=== PATIENT | male | born 1940 | race Caucasian/White ===

== ENCOUNTER 2021-06-28 08:09 | Emergency (ER) | payer OTHER ==
[~2021-06-28] VITALS: Ht 182.9 cm; Wt 99.8 kg
[~2021-06-28 08:09] MED LIST: HYDR-1421
[2021-06-28 09:00] LABS: Basophils # (auto) 0 10 ^3/uL (0-0.2); Basophils % (auto) 0.4 % (0.0-2.0); Eosinophils # (auto) 0 10 ^3/uL (0-0.8); Hematocrit 36.3 % (41.0-53.0); Hemoglobin 12.2 g/dL (13.5-17.5); Lymphocytes # (auto) 0.5 10 ^3/uL (0.4-5.4); Lymphocytes % (auto) 10.2 % (10.0-50.0); Mean Corpuscular Hemoglobin 31.5 pg (28.0-32.0); Mean Corpuscular Hgb Conc. 33.6 g/dL (32.0-36.0); Mean Corpuscular Volume 93.7 fL (80.0-100.0); Monocytes # (auto) 0.6 10 ^3/uL (0-1.3); Monocytes % (auto) 12.5 % (0.0-12.0); Neutrophils # (auto) 3.9 10 ^3/uL (1.6-8.6); Neutrophils % (auto) 76.9 % (37.0-80.0); Nucleated Red Blood Cells % 0.1 %; Red Blood Cells 3.87 10^6/uL (4.5-5.90); Red Cell Distribution Width 13.6 % (11.8-14.3); White Blood Cell 5.1 10^3/uL (4.4-10.8)
[2021-06-28 09:10] LABS: Albumin 3.5 g/dL (3.4-5.0); Anion Gap 12 (5-15); Blood Urea Nitrogen 15 mg/dL (7-18); Calcium 8.6 mg/dL (8.5-10.1); Carbon Dioxide 26 mmol/L (21-32); Chloride 96 mmol/L (98-107); Glucose 112 mg/dL (74-106); Magnesium 2.3 mg/dL (1.6-2.6); Potassium 4.1 mmol/L (3.5-5.1); Sodium 134 mmol/L (136-145)
[2021-06-28 09:14] LABS: Alanine Aminotransferase 23 U/L (16-61); Alkaline Phosphatase 48 U/L (45-117); Aspartate Aminotransferase 17 U/L (15-37); BUN/Creatinine Ratio 19.7; Bilirubin, Total 0.4 mg/dL (0.2-1.0); GFR African American 126 mL/min; GFR Non-African American 104 mL/min; Total Protein 7.1 g/dL (6.4-8.2)
[2021-06-28] MEDS ORDERED: SODIUM CHLORIDE 0.9% 1,000 ML IV ONE ×2 (09:15→16:15)
[2021-06-28 10:29] LABS: INR 1.07 (0.9-1.15); Partial Thromboplastin Time 28.8 sec (23.6-33.0)
[2021-06-28 15:41] LABS: Urine Bacteria NONE SEEN /hpf (None Seen); Urine Blood TRACE /uL (Negative); Urine Hyaline Cast FEW /lpf (0 - 2); Urine Mucus FEW (None Seen); Urine Specific Gravity 1.018 (1.001-1.035); Urine WBC 3 /hpf (0 - 3)
[2021-06-28 20:30] VITALS: BP 143/74
== END 2021-06-28 21:25 | disposition short-term general hospital (02) ==
LOC: ER 08:09 → EDBD 08:09 → ER 21:25
DX: U07.1 COVID-19 (principal); R53.1 Weakness; G20 Parkinson's disease; F02.80 Dementia in other diseases classified elsewhere, unspecified severity, without behavioral disturbance, psychotic disturbance, mood disturbance, and anxiety; I48.91 Unspecified atrial fibrillation; Z79.899 Other long term (current) drug therapy; Z88.0 Allergy status to penicillin
CPT/HCPCS: 36415; 70450; 71045; 80053; 81001; 83735; 84484; 85025; 85610; 85730; 87426; 93005; 96360; 96361; 99285; J7030

== ENCOUNTER 2021-07-08 18:03 | Inpatient (IN) | payer OTHER ==
[~2021-07-08] VITALS: Ht 188 cm; Wt 68.8 kg
[2021-07-08] MEDS ORDERED: ACETAMINOPHEN 650 MG RECT SUPP PR ONE ×2 (18:43→18:45)
[2021-07-08 19:02] LABS: Basophils # (auto) 0 10 ^3/uL (0-0.2); Basophils % (auto) 0.2 % (0.0-2.0); Eosinophils # (auto) 0 10 ^3/uL (0-0.8); Hemoglobin 14.3 g/dL (13.5-17.5); Lymphocytes # (auto) 0.3 10 ^3/uL (0.4-5.4); Lymphocytes % (auto) 2.3 % (10.0-50.0); Mean Corpuscular Hemoglobin 30.5 pg (28.0-32.0); Mean Corpuscular Hgb Conc. 34.1 g/dL (32.0-36.0); Mean Corpuscular Volume 89.3 fL (80.0-100.0); Monocytes % (auto) 7.6 % (0.0-12.0); Neutrophils # (auto) 11.7 10 ^3/uL (1.6-8.6); Neutrophils % (auto) 89.9 % (37.0-80.0); Nucleated Red Blood Cells % 0.1 %; Red Cell Distribution Width 13.5 % (11.8-14.3)
[2021-07-08 19:18] LABS: Albumin 3.1 g/dL (3.4-5.0); Anion Gap 8 (5-15); Blood Urea Nitrogen 50 mg/dL (7-18); Calcium 9.3 mg/dL (8.5-10.1); Carbon Dioxide 25 mmol/L (21-32); Chloride 103 mmol/L (98-107); Glucose 182 mg/dL (74-106); Potassium 4.6 mmol/L (3.5-5.1); Sodium 136 mmol/L (136-145)
[2021-07-08 19:19] LABS: Lactic Acid w/Reflex 2.5 mmol/L (0.4-2.0)
[2021-07-08 19:22] LABS: INR 1.08 (0.9-1.15)
[2021-07-08 19:33] LABS: Alanine Aminotransferase 110 U/L (16-61); Alkaline Phosphatase 65 U/L (45-117); Aspartate Aminotransferase 48 U/L (15-37); BUN/Creatinine Ratio 27.6; Bilirubin, Total 0.8 mg/dL (0.2-1.0); GFR African American 46 mL/min; GFR Non-African American 38 mL/min
[2021-07-08 19:46] LABS: Urine Amorphous Crystal FEW /hpf (None Seen); Urine Bacteria MOD /hpf (None Seen); Urine Mucus MODERATE (None Seen); Urine WBC 31 /hpf (0 - 3); Urine WBC Clumps PRESENT /hpf (None Seen)
[2021-07-08 19:54] LABS: Urine Specific Gravity 1.015 (1.001-1.035)
[2021-07-08 19:55] LABS: Urine Blood 2+ /uL (Negative)
[2021-07-08] MEDS ORDERED: cefTRIAXone 1GM/50ML D5W 50 ML IV ONE (20:30)
[2021-07-08] MEDS ORDERED: DexAMETHasone SOD PHOS 10MG/1ML VIAL INJ IV ONE (20:30)
[2021-07-08] MEDS ORDERED: AZITHROMYCIN 500MG/ 250ML 250 ML IV ONE (20:30)
[2021-07-08] MEDS ORDERED: SODIUM CHLORIDE 0.9% 1,000 ML IV ONE (20:30)
[2021-07-08] MEDS ORDERED: CEFEPIME 1 GM in SODIUM CHL 0.9% 50 ML IV ONE (21:15)
[2021-07-08] MEDS ORDERED: ACETAMINOPHEN 650 MG RECT SUPP PR PRN (21:15)
[2021-07-08] MEDS ORDERED: ONDANSETRON HCL 4 MG/2 ML VIAL IV PRN (22:15)
[2021-07-08] MEDS ORDERED: ACETAMINOPHEN 500 MG TAB PO PRN (22:15)
[2021-07-08] MEDS ORDERED: MORPHINE SULFATE INJECTION 2 MG/ML SYRG IV PRN (22:15)
[2021-07-08] MEDS ORDERED: ALBUTEROL SULF HFA 90MCG INH 200DOSE IN PRN (22:15)
[2021-07-08] MEDS ORDERED: NITROGLYCERIN 0.4 MG SL TAB SL PRN (22:15)
[2021-07-08 23:28] LABS: Magnesium 2.5 mg/dL (1.6-2.6)
[2021-07-08 23:49] LABS: CRP High Sensitivity 11.3 mg/dL (< 0.3)
[2021-07-09 05:41] LABS: Basophils # (auto) 0 10 ^3/uL (0-0.2); Basophils % (auto) 0.1 % (0.0-2.0); Eosinophils # (auto) 0 10 ^3/uL (0-0.8); Hematocrit 38.9 % (41.0-53.0); Hemoglobin 13.3 g/dL (13.5-17.5); Lymphocytes # (auto) 0.5 10 ^3/uL (0.4-5.4); Lymphocytes % (auto) 4.6 % (10.0-50.0); Mean Corpuscular Hemoglobin 30.8 pg (28.0-32.0); Mean Corpuscular Hgb Conc. 34.3 g/dL (32.0-36.0); Mean Corpuscular Volume 89.8 fL (80.0-100.0); Monocytes # (auto) 0.6 10 ^3/uL (0-1.3); Monocytes % (auto) 5.4 % (0.0-12.0); Neutrophils # (auto) 10.4 10 ^3/uL (1.6-8.6); Neutrophils % (auto) 89.9 % (37.0-80.0); Red Blood Cells 4.33 10^6/uL (4.5-5.90); Red Cell Distribution Width 13.4 % (11.8-14.3); White Blood Cell 11.6 10^3/uL (4.4-10.8)
[2021-07-09 06:10] LABS: Albumin 2.7 g/dL (3.4-5.0); Calcium 8.4 mg/dL (8.5-10.1); Potassium 4.2 mmol/L (3.5-5.1)
[2021-07-09 06:13] LABS: BUN/Creatinine Ratio 41.5; Bilirubin, Total 0.7 mg/dL (0.2-1.0)
[2021-07-09] MEDS: levoFLOXacin 250MG 50 ML IV SCH (08:51)
[2021-07-09] MEDS: DexAMETHasone SOD PHOS 10MG/1ML VIAL INJ IV SCH (08:51)
[2021-07-09] MEDS: ZINC SULFATE 220mg CAP or TAB PO SCH (08:51)
[2021-07-09] MEDS: ASCORBIC ACID 1,000 MG TAB PO SCH (08:52)
[2021-07-09] MEDS: MEMANTINE HCL 5 MG TAB PO SCH (08:52)
[2021-07-09] MEDS: PANTOPRAZOLE 40 MG TAB PO SCH (08:52)
[2021-07-09] MEDS: CHOLECALCIFEROL (VITD3) 2,000 UNIT CAP/TAB PO SCH (08:52)
[2021-07-09] MEDS ORDERED: ENOXAPARIN SOD 40 MG/0.4 ML SYRINGE SC SCH (10:00)
[2021-07-09 12:51] VITALS: BP 113/94
[2021-07-09] MEDS ORDERED: REMDESIVIR PER PHARMACY 0 ML IV SCH (13:30)
[2021-07-09] MEDS ORDERED: REMDESIVIR 200 MG in NS 210ml LOADING DOSE ADULT IV ONE (14:30)
[2021-07-09] MEDS ORDERED: IOHEXOL 350 MG/ML 100ML IJ ONE (17:00)
[2021-07-09] MEDS ORDERED: LABETALOL HCL 5 MG/ML 4ML SYRINGE IV PRN ×2 (18:00)
[2021-07-09] MEDS ORDERED: ENOXAPARIN SOD 80 MG/0.8ML SYRINGE SC ONE (19:15)
[2021-07-09] MEDS ORDERED: ENOXAPARIN SOD 100 MG/1 ML SYRINGE SC SCH (19:30)
[2021-07-09 20:29] VITALS: BP 140/99
[2021-07-09 22:00] VITALS: BP 143/94
[2021-07-09] MEDS ORDERED: ALBUTEROL SULF 2.5 MG/0.5ML(0.5%) NEB SOLN NEB SCH (22:00)
[2021-07-09] MEDS ORDERED: AZITHROMYCIN 500MG/ 250ML 250 ML IV SCH (22:00)
[2021-07-09] MEDS ORDERED: ACETYLCYSTEINE 20%(200MG/ML) SOL 4ML NEB SCH (22:00)
[2021-07-09] MEDS ORDERED: AZIT200S47 (23:25)
[2021-07-09] MEDS ORDERED: TROS20TA3 PO (23:25)
[2021-07-09] MEDS ORDERED: MEMA5TAB2 PO (23:25)
[2021-07-09] MEDS ORDERED: RIS1T PO (23:25)
[2021-07-09] MEDS: ALBUTEROL SULF 2.5 MG/0.5ML(0.5%) NEB SOLN NEB SCH (23:26)
[2021-07-09] MEDS: ACETYLCYSTEINE 10 %(100MG/ML) SOL 4ML NEB SCH (23:26)
[2021-07-09] MEDS: IPRATROPIUM BROM 0.5 MG/2.5ML INH SOL NEB SCH (23:26)
[2021-07-10] MEDS: ACETYLCYSTEINE 10 %(100MG/ML) SOL 4ML NEB SCH ×5 (02:34→23:00)
[2021-07-10] MEDS: ALBUTEROL SULF 2.5 MG/0.5ML(0.5%) NEB SOLN NEB SCH ×5 (02:34→23:00)
[2021-07-10] MEDS: IPRATROPIUM BROM 0.5 MG/2.5ML INH SOL NEB SCH ×4 (02:34→23:00)
[2021-07-10 05:17] VITALS: BP 143/83
[2021-07-10 07:00] VITALS: BP 136/91
[2021-07-10] MEDS ORDERED: HEPARIN SODIUM (PORCINE) 5000 UNITS/ML 1ML VIAL IV ONE (08:45)
[2021-07-10 09:00] VITALS: BP 136/91
[2021-07-10] MEDS: DexAMETHasone SOD PHOS 10MG/1ML VIAL INJ IV SCH (09:46)
[2021-07-10] MEDS: levoFLOXacin 250MG 50 ML IV SCH (09:47)
[2021-07-10] MEDS: PANTOPRAZOLE 40 MG TAB PO SCH (10:00)
[2021-07-10] MEDS: ZINC SULFATE 220mg CAP or TAB PO SCH (10:00)
[2021-07-10] MEDS: ASCORBIC ACID 1,000 MG TAB PO SCH (10:00)
[2021-07-10] MEDS: CHOLECALCIFEROL (VITD3) 2,000 UNIT CAP/TAB PO SCH (10:00)
[2021-07-10] MEDS: MEMANTINE HCL 5 MG TAB PO SCH (10:00)
[2021-07-10 11:11] LABS: INR 1.11 (0.9-1.15); Partial Thromboplastin Time 27.5 sec (23.6-33.0)
[2021-07-10 11:27] LABS: Basophils # (auto) 0 10 ^3/uL (0-0.2); Basophils % (auto) 0.1 % (0.0-2.0); Eosinophils # (auto) 0 10 ^3/uL (0-0.8); Hematocrit 41.2 % (41.0-53.0); Hemoglobin 13.8 g/dL (13.5-17.5); Lymphocytes # (auto) 0.4 10 ^3/uL (0.4-5.4); Lymphocytes % (auto) 2.8 % (10.0-50.0); Mean Corpuscular Hemoglobin 30.2 pg (28.0-32.0); Mean Corpuscular Hgb Conc. 33.5 g/dL (32.0-36.0); Mean Corpuscular Volume 90.3 fL (80.0-100.0); Monocytes # (auto) 0.7 10 ^3/uL (0-1.3); Monocytes % (auto) 4.9 % (0.0-12.0); Neutrophils # (auto) 12.9 10 ^3/uL (1.6-8.6); Neutrophils % (auto) 92.2 % (37.0-80.0); Red Blood Cells 4.56 10^6/uL (4.5-5.90); Red Cell Distribution Width 13.4 % (11.8-14.3)
[2021-07-10] MEDS: HEPARIN DRIP/D5W 100UNITS/ML 250 ML IV SCH ×2 (11:57→18:55)
[2021-07-10 13:00] VITALS: BP 126/69
[2021-07-10] MEDS ORDERED: REMDESIVIR 100mg 100 MG in SODIUM CHL 0.9% 230 ML IV SCH (15:00)
[2021-07-10 17:00] VITALS: BP 119/69
[2021-07-10 18:43] LABS: INR 1.16 (0.9-1.15)
[2021-07-10 18:46] LABS: Partial Thromboplastin Time 82.8 sec (23.6-33.0)
[2021-07-10 21:35] VITALS: BP 135/94
[2021-07-11 01:43] LABS: INR 1.16 (0.9-1.15); Partial Thromboplastin Time 68.1 sec (23.6-33.0)
[2021-07-11] MEDS: ACETYLCYSTEINE 10 %(100MG/ML) SOL 4ML NEB SCH ×6 (02:28→22:31)
[2021-07-11] MEDS: ALBUTEROL SULF 2.5 MG/0.5ML(0.5%) NEB SOLN NEB SCH ×6 (02:28→22:31)
[2021-07-11 05:00] VITALS: BP 108/80
[2021-07-11 05:45] LABS: Basophils # (auto) 0 10 ^3/uL (0-0.2); Basophils % (auto) 0.2 % (0.0-2.0); Eosinophils # (auto) 0 10 ^3/uL (0-0.8); Hematocrit 38.8 % (41.0-53.0); Hemoglobin 13.5 g/dL (13.5-17.5); Lymphocytes # (auto) 0.5 10 ^3/uL (0.4-5.4); Lymphocytes % (auto) 5.4 % (10.0-50.0); Mean Corpuscular Hemoglobin 30.8 pg (28.0-32.0); Mean Corpuscular Hgb Conc. 34.9 g/dL (32.0-36.0); Mean Corpuscular Volume 88.3 fL (80.0-100.0); Monocytes # (auto) 0.8 10 ^3/uL (0-1.3); Monocytes % (auto) 7.8 % (0.0-12.0); Neutrophils # (auto) 8.6 10 ^3/uL (1.6-8.6); Neutrophils % (auto) 86.6 % (37.0-80.0); Nucleated Red Blood Cells % 0.1 %; Red Blood Cells 4.39 10^6/uL (4.5-5.90); Red Cell Distribution Width 13.3 % (11.8-14.3)
[2021-07-11] MEDS: HEPARIN DRIP/D5W 100UNITS/ML 250 ML IV SCH ×3 (06:14→14:02)
[2021-07-11 06:26] LABS: Potassium 3.8 mmol/L (3.5-5.1)
[2021-07-11 06:36] LABS: Calcium 8.4 mg/dL (8.5-10.1)
[2021-07-11] MEDS: IPRATROPIUM BROM 0.5 MG/2.5ML INH SOL NEB SCH ×5 (07:16→22:31)
[2021-07-11] MEDS: ZINC SULFATE 220mg CAP or TAB PO SCH (08:22)
[2021-07-11] MEDS: PANTOPRAZOLE 40 MG TAB PO SCH (08:23)
[2021-07-11] MEDS: CHOLECALCIFEROL (VITD3) 2,000 UNIT CAP/TAB PO SCH (08:23)
[2021-07-11] MEDS: MEMANTINE HCL 5 MG TAB PO SCH (08:23)
[2021-07-11] MEDS: ASCORBIC ACID 1,000 MG TAB PO SCH (08:23)
[2021-07-11 08:27] VITALS: BP 113/76
[2021-07-11] MEDS: DexAMETHasone SOD PHOS 10MG/1ML VIAL INJ IV SCH (08:43)
[2021-07-11] MEDS: levoFLOXacin 250MG 50 ML IV SCH (08:43)
[2021-07-11] MEDS ORDERED: ACETAMINOPHEN 650 MG RECT SUPP PR PRN (08:45)
[2021-07-11] MEDS ORDERED: PANTOPRAZOLE 40 MG/10 ML VIAL INJ IV SCH (10:00)
[2021-07-11] MEDS: SOD CHL 0.9%/ KCL 20MEQ 1,000 ML IV SCH (10:27)
[2021-07-11 12:30] VITALS: BP 137/72
[2021-07-11 14:22] LABS: INR 1.14 (0.9-1.15); Partial Thromboplastin Time 60.2 sec (23.6-33.0)
[2021-07-11 17:00] VITALS: BP 122/77
[2021-07-11 22:00] VITALS: BP 139/83
[2021-07-12] MEDS: ALBUTEROL SULF 2.5 MG/0.5ML(0.5%) NEB SOLN NEB SCH ×6 (02:03→22:01)
[2021-07-12] MEDS: ACETYLCYSTEINE 10 %(100MG/ML) SOL 4ML NEB SCH ×6 (02:03→22:01)
[2021-07-12 05:00] VITALS: BP 119/70
[2021-07-12 05:02] LABS: Basophils # (auto) 0 10 ^3/uL (0-0.2); Basophils % (auto) 0.5 % (0.0-2.0); Eosinophils # (auto) 0 10 ^3/uL (0-0.8); Eosinophils % (auto) 0.4 % (0.0-7.0); Hematocrit 37.8 % (41.0-53.0); Lymphocytes # (auto) 0.7 10 ^3/uL (0.4-5.4); Lymphocytes % (auto) 9.1 % (10.0-50.0); Mean Corpuscular Hemoglobin 31.1 pg (28.0-32.0); Mean Corpuscular Hgb Conc. 34.3 g/dL (32.0-36.0); Mean Corpuscular Volume 90.5 fL (80.0-100.0); Monocytes # (auto) 0.6 10 ^3/uL (0-1.3); Monocytes % (auto) 7.8 % (0.0-12.0); Neutrophils # (auto) 6.5 10 ^3/uL (1.6-8.6); Neutrophils % (auto) 82.2 % (37.0-80.0); Nucleated Red Blood Cells % 0.1 %; Red Blood Cells 4.18 10^6/uL (4.5-5.90); Red Cell Distribution Width 13.2 % (11.8-14.3); White Blood Cell 7.9 10^3/uL (4.4-10.8)
[2021-07-12] MEDS: HEPARIN DRIP/D5W 100UNITS/ML 250 ML IV SCH (05:05)
[2021-07-12 05:22] LABS: Potassium 4.4 mmol/L (3.5-5.1)
[2021-07-12 05:40] LABS: Albumin 2.3 g/dL (3.4-5.0); BUN/Creatinine Ratio 49.2; Bilirubin, Total 0.6 mg/dL (0.2-1.0); CRP High Sensitivity 11.8 mg/dL (< 0.3); Calcium 8.4 mg/dL (8.5-10.1); Total Protein 6.6 g/dL (6.4-8.2)
[2021-07-12 05:44] LABS: INR 1.09 (0.9-1.15)
[2021-07-12] MEDS: IPRATROPIUM BROM 0.5 MG/2.5ML INH SOL NEB SCH ×5 (06:17→22:01)
[2021-07-12] MEDS: SOD CHL 0.9%/ KCL 20MEQ 1,000 ML IV SCH ×2 (06:54→23:27)
[2021-07-12 09:00] VITALS: BP 128/70
[2021-07-12] MEDS ORDERED: risperiDONE 1 MG TAB PO SCH (10:00)
[2021-07-12] MEDS: DexAMETHasone SOD PHOS 10MG/1ML VIAL INJ IV SCH (10:06)
[2021-07-12] MEDS: levoFLOXacin 250MG 50 ML IV SCH (10:06)
[2021-07-12] MEDS: MEMANTINE HCL 5 MG TAB PO SCH (10:06)
[2021-07-12] MEDS: risperiDONE 1 MG TAB PO SCH (10:07)
[2021-07-12 13:00] VITALS: BP 127/67
[2021-07-12 13:51] VITALS: BP 124/68
[2021-07-12 17:00] VITALS: BP 121/71
[2021-07-12] MEDS ORDERED: LORazepam 2MG/ML-1ML VIAL IV ONE (18:15)
[2021-07-12] MEDS: ENOXAPARIN SOD 100 MG/1 ML SYRINGE SC SCH (21:14)
[2021-07-12 22:00] VITALS: BP 122/71
[2021-07-13] MEDS: ALBUTEROL SULF 2.5 MG/0.5ML(0.5%) NEB SOLN NEB SCH ×4 (02:04→14:58)
[2021-07-13] MEDS: IPRATROPIUM BROM 0.5 MG/2.5ML INH SOL NEB SCH ×3 (02:04→14:58)
[2021-07-13] MEDS: ACETYLCYSTEINE 10 %(100MG/ML) SOL 4ML NEB SCH ×4 (02:04→14:58)
[2021-07-13 05:00] VITALS: BP 128/67
[2021-07-13 06:02] LABS: Calcium 7.7 mg/dL (8.5-10.1)
[2021-07-13 06:04] LABS: BUN/Creatinine Ratio 44.2; INR 1.07 (0.9-1.15); Partial Thromboplastin Time 28.5 sec (23.6-33.0)
[2021-07-13 06:15] LABS: Basophils # (auto) 0 10 ^3/uL (0-0.2); Basophils % (auto) 0.1 % (0.0-2.0); Eosinophils # (auto) 0 10 ^3/uL (0-0.8); Hematocrit 34.4 % (41.0-53.0); Hemoglobin 11.6 g/dL (13.5-17.5); Lymphocytes # (auto) 0.6 10 ^3/uL (0.4-5.4); Lymphocytes % (auto) 9.5 % (10.0-50.0); Mean Corpuscular Hemoglobin 30.1 pg (28.0-32.0); Mean Corpuscular Hgb Conc. 33.6 g/dL (32.0-36.0); Mean Corpuscular Volume 89.7 fL (80.0-100.0); Monocytes # (auto) 0.5 10 ^3/uL (0-1.3); Monocytes % (auto) 7.9 % (0.0-12.0); Neutrophils # (auto) 5.1 10 ^3/uL (1.6-8.6); Neutrophils % (auto) 82.5 % (37.0-80.0); Red Blood Cells 3.84 10^6/uL (4.5-5.90); Red Cell Distribution Width 13.3 % (11.8-14.3); White Blood Cell 6.2 10^3/uL (4.4-10.8)
[2021-07-13 09:00] VITALS: BP 131/72
[2021-07-13] MEDS: levoFLOXacin 250MG 50 ML IV SCH (10:24)
[2021-07-13] MEDS: MEMANTINE HCL 5 MG TAB PO SCH (10:24)
[2021-07-13] MEDS: DexAMETHasone SOD PHOS 10MG/1ML VIAL INJ IV SCH (10:24)
[2021-07-13] MEDS: risperiDONE 1 MG TAB PO SCH (10:24)
[2021-07-13] MEDS: ENOXAPARIN SOD 100 MG/1 ML SYRINGE SC SCH ×2 (10:25→21:23)
[2021-07-13 13:00] VITALS: BP 121/78
[2021-07-13] MEDS: LORazepam 2MG/ML-1ML VIAL IV PRN (13:00)
[2021-07-13 17:00] VITALS: BP 130/69
[2021-07-13] MEDS ORDERED: ALBUTEROL SULF 2.5 MG/0.5ML(0.5%) NEB SOLN NEB PRN (19:15)
[2021-07-13] MEDS ORDERED: IPRATROPIUM BROM 0.5 MG/2.5ML INH SOL NEB PRN (19:15)
[2021-07-13] MEDS: SOD CHL 0.9%/ KCL 20MEQ 1,000 ML IV SCH (19:54)
[2021-07-13 22:00] VITALS: BP 123/72
[2021-07-14 05:00] VITALS: BP 127/73
[2021-07-14 05:45] LABS: Basophils # (auto) 0 10 ^3/uL (0-0.2); Basophils % (auto) 0.1 % (0.0-2.0); Eosinophils # (auto) 0 10 ^3/uL (0-0.8); Hematocrit 33.8 % (41.0-53.0); Lymphocytes # (auto) 0.8 10 ^3/uL (0.4-5.4); Lymphocytes % (auto) 11.9 % (10.0-50.0); Mean Corpuscular Hemoglobin 31.4 pg (28.0-32.0); Mean Corpuscular Hgb Conc. 35.5 g/dL (32.0-36.0); Mean Corpuscular Volume 88.5 fL (80.0-100.0); Monocytes # (auto) 0.5 10 ^3/uL (0-1.3); Monocytes % (auto) 7.4 % (0.0-12.0); Neutrophils # (auto) 5.3 10 ^3/uL (1.6-8.6); Neutrophils % (auto) 80.6 % (37.0-80.0); Nucleated Red Blood Cells % 0.1 %; Red Blood Cells 3.82 10^6/uL (4.5-5.90); Red Cell Distribution Width 12.9 % (11.8-14.3); White Blood Cell 6.5 10^3/uL (4.4-10.8)
[2021-07-14 06:07] LABS: Calcium 7.9 mg/dL (8.5-10.1)
[2021-07-14 06:10] LABS: BUN/Creatinine Ratio 35.6
[2021-07-14 08:48] VITALS: BP 137/70
[2021-07-14] MEDS: MEMANTINE HCL 5 MG TAB PO SCH (10:28)
[2021-07-14] MEDS: ENOXAPARIN SOD 100 MG/1 ML SYRINGE SC SCH (10:28)
[2021-07-14] MEDS: DexAMETHasone SOD PHOS 10MG/1ML VIAL INJ IV SCH (10:28)
[2021-07-14] MEDS: levoFLOXacin 250MG 50 ML IV SCH (10:28)
[2021-07-14] MEDS: risperiDONE 1 MG TAB PO SCH (10:28)
[2021-07-14] MEDS: LORazepam 2MG/ML-1ML VIAL IV PRN (11:25)
[2021-07-14 12:39] VITALS: BP 128/65
[2021-07-14 17:00] VITALS: BP 141/95
[2021-07-14] MEDS: Ensure Enlive Strawberry 8oz Bottle PO SCH (18:11)
[2021-07-14 22:00] VITALS: BP 143/94
[2021-07-14] MEDS: APIXABAN 5 MG TAB PO SCH (22:51)
[2021-07-15 05:00] VITALS: BP 153/99
[2021-07-15 09:18] VITALS: BP 131/77
[2021-07-15] MEDS ORDERED: levoFLOXacin 250MG 50 ML IV SCH (10:00)
[2021-07-15] MEDS: DexAMETHasone SOD PHOS 10MG/1ML VIAL INJ IV SCH (10:24)
[2021-07-15] MEDS: Ensure Enlive Strawberry 8oz Bottle PO SCH ×3 (10:25→18:00)
[2021-07-15] MEDS: MEMANTINE HCL 5 MG TAB PO SCH (10:25)
[2021-07-15] MEDS: risperiDONE 1 MG TAB PO SCH (10:25)
[2021-07-15] MEDS: APIXABAN 5 MG TAB PO SCH ×2 (10:25→21:00)
[2021-07-15 11:14] VITALS: BP 133/74
[2021-07-15 13:16] VITALS: BP 106/66
[2021-07-15 16:47] VITALS: BP 140/79
[2021-07-15 22:01] VITALS: BP 129/78
[2021-07-21] MEDS ORDERED: APIXABAN 5 MG TAB PO SCH (22:00)
== END 2021-07-16 01:20 | disposition short-term general hospital (02) | DRG 177 ==
LOC: EDBD 18:03 → ER 18:06 → TELE 22:10 → TELE-EAST 07-09 18:02 → TELE-E-ADS 07-15 11:29
PROVIDERS: ADMIT Nurse Practitioner; ATTEND Internal Medicine
DX: U07.1 COVID-19 (principal); J15.6 Pneumonia due to other Gram-negative bacteria; J12.82 Pneumonia due to coronavirus disease 2019; G93.41 Metabolic encephalopathy; J96.01 Acute respiratory failure with hypoxia; N17.0 Acute kidney failure with tubular necrosis; I26.99 Other pulmonary embolism without acute cor pulmonale; N39.0 Urinary tract infection, site not specified; E44.0 Moderate protein-calorie malnutrition; G93.1 Anoxic brain damage, not elsewhere classified; J98.19 Other pulmonary collapse; R31.9 Hematuria, unspecified; F03.90 Unspecified dementia, unspecified severity, without behavioral disturbance, psychotic disturbance, mood disturbance, and anxiety; I10 Essential (primary) hypertension; Z88.0 Allergy status to penicillin; Z88.2 Allergy status to sulfonamides
CPT/HCPCS: 36415; 36600; 70450; 71045; 71275; 80048; 80053; 81001; 82728; 82805; 83605; 83615; 83735; 83880; 84484; 85025; 85379; 85610; 85730; 86141; 87040; 87081; 87086; 87426; 92610; 93005; 93306; 93970; 94640; 96365; 96375; C9113; G0378; J1100; J3490

== ENCOUNTER 2021-08-03 15:26 | Inpatient (IN) | payer OTHER ==
[~2021-08-03] VITALS: Ht 172.7 cm; Wt 64.7 kg
[~2021-08-03 15:26] MED LIST changes: +AZIT200S47; -HYDR-1421; +MEMA5TAB2 PO; +RIS1T PO; +TROS20TA3 PO
[2021-08-03] MEDS ORDERED: SODIUM CHLORIDE 0.9% 500 ML IVB ONE (15:45)
[2021-08-03] MEDS ORDERED: SODIUM CHLORIDE 0.9% 1,000 ML IV ONE (15:45)
[2021-08-03] MEDS ORDERED: NALOXONE HCL 1MG/ML 2ML SYRINGE IV ONE (16:00)
[2021-08-03 16:38] LABS: Basophils # (auto) 0 10 ^3/uL (0-0.2); Basophils % (auto) 0.4 % (0.0-2.0); Eosinophils # (auto) 0.1 10 ^3/uL (0-0.8); Eosinophils % (auto) 0.9 % (0.0-7.0); Hematocrit 36.8 % (41.0-53.0); Hemoglobin 12.1 g/dL (13.5-17.5); Lymphocytes # (auto) 1.3 10 ^3/uL (0.4-5.4); Lymphocytes % (auto) 14.1 % (10.0-50.0); Mean Corpuscular Hemoglobin 30.2 pg (28.0-32.0); Mean Corpuscular Hgb Conc. 32.8 g/dL (32.0-36.0); Monocytes # (auto) 0.8 10 ^3/uL (0-1.3); Monocytes % (auto) 9.4 % (0.0-12.0); Neutrophils # (auto) 6.8 10 ^3/uL (1.6-8.6); Neutrophils % (auto) 75.2 % (37.0-80.0); Nucleated Red Blood Cells % 0.1 %; Red Cell Distribution Width 14.1 % (11.8-14.3)
[2021-08-03 16:41] LABS: Urine Bacteria FEW /hpf (None Seen); Urine Blood 2+ /uL (Negative); Urine Mucus FEW (None Seen); Urine WBC 3 /hpf (0 - 3)
[2021-08-03 16:56] LABS: Albumin 2.4 g/dL (3.4-5.0); Anion Gap 7 (5-15); Blood Urea Nitrogen 38 mg/dL (7-18); Calcium 9.2 mg/dL (8.5-10.1); Carbon Dioxide 28 mmol/L (21-32); Chloride 120 mmol/L (98-107); Glucose 105 mg/dL (74-106); Magnesium 2.9 mg/dL (1.6-2.6); Potassium 3.9 mmol/L (3.5-5.1); Sodium 155 mmol/L (136-145)
[2021-08-03 16:59] LABS: Alanine Aminotransferase 60 U/L (16-61); Alkaline Phosphatase 123 U/L (45-117); Aspartate Aminotransferase 34 U/L (15-37); BUN/Creatinine Ratio 30.2; Bilirubin, Total 1.2 mg/dL (0.2-1.0); GFR African American 70 mL/min; GFR Non-African American 58 mL/min; Total Protein 7.8 g/dL (6.4-8.2)
[2021-08-03 17:18] LABS: Alcohol, Urine < 3.0 mg/dL (0-10); Amphetamine Screen, Urine NEGATIVE (NEGATIVE); Barbiturate Scree,Urine NEGATIVE (NEGATIVE); Benzodiazephine Screen, Urine NEGATIVE (NEGATIVE); Cannabinoid Screen, Urine NEGATIVE (NEGATIVE); Cocaine Screen, Urine NEGATIVE (NEGATIVE); Opiate Scree,Urine NEGATIVE (NEGATIVE); Phencyclidine Screen, Urine NEGATIVE (NEGATIVE)
[2021-08-03 17:25] LABS: Blood Alcohol < 3.0 mg/dL (0-5)
[2021-08-03 17:26] LABS: INR 1.25 (0.9-1.15); Partial Thromboplastin Time 28.1 sec (23.6-33.0)
[2021-08-03] MEDS ORDERED: AZITHROMYCIN 500MG/ 250ML 250 ML IV ONE (18:45)
[2021-08-03] MEDS ORDERED: cefTRIAXone 1GM/50ML D5W 50 ML IV ONE (18:45)
[2021-08-03] MEDS ORDERED: MORPHINE SULFATE INJECTION 2 MG/ML SYRG IV PRN (20:30)
[2021-08-03] MEDS ORDERED: ACETAMINOPHEN 325 MG TAB PO PRN (20:30)
[2021-08-03] MEDS ORDERED: NITROGLYCERIN 0.4 MG SL TAB SL PRN (20:30)
[2021-08-03] MEDS ORDERED: TEMAZEPAM 15 MG CAP PO PRN (20:30)
[2021-08-03] MEDS ORDERED: ONDANSETRON HCL 4 MG/2 ML VIAL IV PRN (20:30)
[2021-08-03] MEDS: SOD CHL 0.45% 1,000 ML IV SCH (21:23)
[2021-08-03] MEDS: DexAMETHasone SOD PHOS 10MG/1ML VIAL INJ IV SCH (21:24)
[2021-08-03] MEDS: ASCORBIC ACID 500 MG TAB PO SCH (21:24)
[2021-08-03] MEDS: MEMANTINE HCL 5 MG TAB PO SCH (21:24)
[2021-08-04 03:55] LABS: BUN/Creatinine Ratio 36.3; Calcium 8.4 mg/dL (8.5-10.1); Potassium 4.4 mmol/L (3.5-5.1)
[2021-08-04] MEDS ORDERED: REMDESIVIR PER PHARMACY 0 ML IV SCH (05:45)
[2021-08-04 07:12] LABS: Basophils # (auto) 0 10 ^3/uL (0-0.2); Basophils % (auto) 0.2 % (0.0-2.0); Eosinophils # (auto) 0 10 ^3/uL (0-0.8); Hematocrit 32.5 % (41.0-53.0); Hemoglobin 10.5 g/dL (13.5-17.5); Lymphocytes # (auto) 0.5 10 ^3/uL (0.4-5.4); Lymphocytes % (auto) 6.1 % (10.0-50.0); Mean Corpuscular Hemoglobin 29.8 pg (28.0-32.0); Mean Corpuscular Hgb Conc. 32.3 g/dL (32.0-36.0); Mean Corpuscular Volume 92.4 fL (80.0-100.0); Monocytes # (auto) 0.6 10 ^3/uL (0-1.3); Monocytes % (auto) 7.2 % (0.0-12.0); Neutrophils # (auto) 7.2 10 ^3/uL (1.6-8.6); Neutrophils % (auto) 86.5 % (37.0-80.0); Nucleated Red Blood Cells % 0.1 %; Red Blood Cells 3.52 10^6/uL (4.5-5.90); Red Cell Distribution Width 14.6 % (11.8-14.3); White Blood Cell 8.4 10^3/uL (4.4-10.8)
[2021-08-04] MEDS: PANTOPRAZOLE 40 MG TAB PO SCH (09:40)
[2021-08-04] MEDS: ZINC SULFATE 220mg CAP or TAB PO SCH (09:40)
[2021-08-04] MEDS: ASCORBIC ACID 500 MG TAB PO SCH ×2 (09:41→22:00)
[2021-08-04] MEDS: risperiDONE 1 MG TAB PO SCH (09:41)
[2021-08-04] MEDS ORDERED: RIV20T PO (11:25)
[2021-08-04] MEDS ORDERED: RISP0.5T45 PO (11:25)
[2021-08-04] MEDS: MEMANTINE HCL 5 MG TAB PO SCH ×2 (11:28→22:00)
[2021-08-04] MEDS ORDERED: MULT-1018 PO (11:32)
[2021-08-04] MEDS ORDERED: FER325T PO (11:32)
[2021-08-04] MEDS ORDERED: CALC1TAB95 PO (11:32)
[2021-08-04] MEDS ORDERED: CHOL100029 PO ×2 (11:32)
[2021-08-04] MEDS ORDERED: CHOL500021 OR (11:32)
[2021-08-04] MEDS: cefTRIAXone 1GM/50ML D5W 50 ML IV SCH (11:34)
[2021-08-04] MEDS: DexAMETHasone SOD PHOS 10MG/1ML VIAL INJ IV SCH (11:37)
[2021-08-04] MEDS: AZITHROMYCIN 500MG/ 250ML 250 ML IV SCH (11:47)
[2021-08-04] MEDS: SOD CHL 0.45% 1,000 ML IV SCH (12:19)
[2021-08-04] MEDS ORDERED: REMDESIVIR 200 MG in NS 210ml LOADING DOSE ADULT IV ONE (15:00)
[2021-08-04] MEDS ORDERED: RIVAROXABAN 20 MG TAB PO SCH (18:00)
[2021-08-04 22:00] VITALS: BP 117/56
[2021-08-05 05:00] VITALS: BP 119/62
[2021-08-05 08:00] VITALS: BP 109/59
[2021-08-05] MEDS: ZINC SULFATE 220mg CAP or TAB PO SCH ×2 (08:18→10:00)
[2021-08-05] MEDS: cefTRIAXone 1GM/50ML D5W 50 ML IV SCH (08:18)
[2021-08-05] MEDS: MEMANTINE HCL 5 MG TAB PO SCH ×2 (08:19→10:00)
[2021-08-05] MEDS: risperiDONE 1 MG TAB PO SCH ×2 (08:19→10:00)
[2021-08-05] MEDS: PANTOPRAZOLE 40 MG TAB PO SCH ×2 (08:19→10:00)
[2021-08-05] MEDS: ASCORBIC ACID 500 MG TAB PO SCH ×2 (08:19→10:00)
[2021-08-05] MEDS: AZITHROMYCIN 500MG/ 250ML 250 ML IV SCH (09:30)
[2021-08-05 12:00] VITALS: BP 111/45
[2021-08-05] MEDS ORDERED: LORazepam 2MG/ML-1ML VIAL IV ONE (14:45)
[2021-08-05] MEDS ORDERED: REMDESIVIR 100mg 100 MG in SODIUM CHL 0.9% 230 ML IV SCH (15:00)
== END 2021-08-05 16:10 | disposition hospice, home (50) | DRG 177 ==
LOC: EDUNIT# 15:26 → EDBD 15:26 → ER 15:26 → TELE 20:36 → TELE-E-ADS 08-04 18:43
PROVIDERS: ADMIT Nurse Practitioner; ATTEND Internal Medicine
PROC: XW033E5 Introduction of Remdesivir Anti-infective into Peripheral Vein, Percutaneous Approach, New Technology Group 5 (ICD-10-PCS; principal; 2021-08-04)
DX: U07.1 COVID-19 (principal); G92.9 Unspecified toxic encephalopathy; J12.82 Pneumonia due to coronavirus disease 2019; J96.20 Acute and chronic respiratory failure, unspecified whether with hypoxia or hypercapnia; N17.0 Acute kidney failure with tubular necrosis; E87.0 Hyperosmolality and hypernatremia; D68.59 Other primary thrombophilia; E44.0 Moderate protein-calorie malnutrition; G20 Parkinson's disease; Z66 Do not resuscitate; F02.80 Dementia in other diseases classified elsewhere, unspecified severity, without behavioral disturbance, psychotic disturbance, mood disturbance, and anxiety; G30.9 Alzheimer's disease, unspecified; I10 Essential (primary) hypertension; Z51.5 Encounter for palliative care; Z86.711 Personal history of pulmonary embolism; Z88.0 Allergy status to penicillin; Z88.2 Allergy status to sulfonamides; Z88.8 Allergy status to other drugs, medicaments and biological substances
CPT/HCPCS: 36415; 36600; 70450; 71045; 80048; 80053; 80307; 80320; 81001; 82805; 83605; 83735; 84443; 84484; 85025; 85379; 85610; 85730; 87040; 87081; 87426; 93005; 96365; 96366; 96367; 96375; G0378; J0696; J1100